=== PATIENT | female | born 1955 | race Caucasian/White ===

== ENCOUNTER 2017-01-23 | Emergency (ER) | payer OTHER ==
[~2017-01-23] MED LIST: ASPIR 8181 MG PO; BRILINTA 90 MG90 MG PO; GLUCOPHAGE1000 MG PO; LIPITOR TAB 2020 MG PO; LOPRESSOR 25 MG25 MG PO; NITROSTAT 0.40.4 MG SL; NORVASC 5 MG TAB5 MG PO; PRILOSEC OTC20 MG PO; PROVENTIL HFA 61 INH INH
[2017-08-02] MEDS ORDERED: PLAVIX 75 MG TA75 MG PO (03:26)
[2017-08-02] MEDS ORDERED: DIABETA 2.5 MG2.5 MG PO (03:31)
== END 2017-01-23 21:20 | disposition left against medical advice (07) ==
DX: Z53.21 Procedure and treatment not carried out due to patient leaving prior to being seen by health care provider (principal)
CPT/HCPCS: 93005

== ENCOUNTER 2017-02-18 16:29 | Emergency (ER) | payer OTHER ==
[2017-08-02] MEDS ORDERED: PLAVIX 75 MG TA75 MG PO (03:26)
[2017-08-02] MEDS ORDERED: DIABETA 2.5 MG2.5 MG PO (03:31)
== END 2017-02-18 18:19 | disposition home or self-care (01) ==
LOC: ER1 16:29
DX: Z53.21 Procedure and treatment not carried out due to patient leaving prior to being seen by health care provider (principal)

== ENCOUNTER 2017-05-08 17:48 | Inpatient (IN) | payer OTHER ==
[~2017-05-08] VITALS: Ht 170.2 cm; Wt 104.4 kg
[2017-05-08 18:51] LABS: HEMOGLOBIN 13.9 gm/dl (12.3-15.3); RED BLOOD COUNT 4.92 M/UL (4.00-5.10); WHITE BLOOD COUNT 10.2 K/UL (4.5-11.0)
[2017-05-08 19:09] LABS: BUN/CREATININE RATIO 19 (0-10)
[2017-05-09] MEDS ORDERED: PLAVIX 75 MG TA75 MG PO (01:07)
[2017-05-09] MEDS ORDERED: NORVASC 5 MG TAB5 MG PO (01:07)
[2017-05-09] MEDS ORDERED: LASIX20 MG PO (07:59)
[2017-05-09] MEDS ORDERED: MECLIZINE HCL25 MG PO (07:59)
[2017-05-09] MEDS ORDERED: ZYRTEC10 M3 PO (08:00)
[2017-05-09] MEDS ORDERED: WELLBUTRIN SR150 MG PO (08:01)
--- NOTE | 2017-05-10 19:32 | NUR ---
05/10/171927 PATIENT INSISTENT ON GOING OUTSIDE, PATIENT WAS INFORMED AND EDUCATED ON THE RISK OF LEAVING FLOOR, AND VERBALIZES UNDERSTANDING. SMOKING RELEASE ON CHART PORTABLE TELEMETRY PACK PLACED ON PATIENT. PATIENT LEFT FLOOR.
[2017-05-11 11:15] LABS: HEMOGLOBIN 11.8 gm/dl (12.3-15.3); RED BLOOD COUNT 4.23 M/UL (4.00-5.10); WHITE BLOOD COUNT 8.2 K/UL (4.5-11.0)
[2017-05-11 11:32] LABS: BUN/CREATININE RATIO 22 (0-10)
[2017-05-11] MEDS ORDERED: ZETIA10 MG PO (12:17)
[2017-08-02] MEDS ORDERED: PLAVIX 75 MG TA75 MG PO (03:26)
[2017-08-02] MEDS ORDERED: DIABETA 2.5 MG2.5 MG PO (03:31)
== END 2017-05-11 13:13 | disposition home or self-care (01) | DRG 247 ==
LOC: ER1 17:48 → MED SURG 4 21:30 → ZEROF 21:30 → MED SURG 4 23:37 → PROG CARE 05-10 14:27
PROVIDERS: Internal Medicine; Physician Assistant; ADMIT Internal Medicine
PROC: 027034Z Dilation of Coronary Artery, One Artery with Drug-eluting Intraluminal Device, Percutaneous Approach (ICD-10-PCS; principal; 2017-05-10)
PROC: 4A033BC Measurement of Arterial Pressure, Coronary, Percutaneous Approach (ICD-10-PCS; 2017-05-10)
PROC: 3E07317 Introduction of Other Thrombolytic into Coronary Artery, Percutaneous Approach (ICD-10-PCS; 2017-05-10)
PROC: 4A023N7 Measurement of Cardiac Sampling and Pressure, Left Heart, Percutaneous Approach (ICD-10-PCS; 2017-05-10)
PROC: B2111ZZ Fluoroscopy of Multiple Coronary Arteries using Low Osmolar Contrast (ICD-10-PCS; 2017-05-10)
DX: T82.855A Stenosis of coronary artery stent, initial encounter (principal); I25.10 Atherosclerotic heart disease of native coronary artery without angina pectoris; R10.9 Unspecified abdominal pain; E11.9 Type 2 diabetes mellitus without complications; J44.9 Chronic obstructive pulmonary disease, unspecified; F17.210 Nicotine dependence, cigarettes, uncomplicated; K21.9 Gastro-esophageal reflux disease without esophagitis; E78.5 Hyperlipidemia, unspecified; G47.33 Obstructive sleep apnea (adult) (pediatric); I25.2 Old myocardial infarction; I25.119 Atherosclerotic heart disease of native coronary artery with unspecified angina pectoris; I10 Essential (primary) hypertension; E66.9 Obesity, unspecified; Y84.0 Cardiac catheterization as the cause of abnormal reaction of the patient, or of later complication, without mention of misadventure at the time of the procedure; Z99.81 Dependence on supplemental oxygen; Z90.710 Acquired absence of both cervix and uterus; Z98.61 Coronary angioplasty status; Z79.84 Long term (current) use of oral hypoglycemic drugs; Z79.899 Other long term (current) drug therapy; Z82.49 Family history of ischemic heart disease and other diseases of the circulatory system; Z68.36 Body mass index [BMI] 36.0-36.9, adult
CPT/HCPCS: 36415; 71010; 78452; 80048; 80053; 80061; 81001; 82550; 82553; 82962; 83036; 83874; 83880; 84443; 84484; 85025; 85027; 85347; 93005; 93017; 93571; 94640; 94664; 99152; 99153; 99285; A9502; C1725; C1769; C1874; C1887; C1894; C9600; G0378; J0153; J1644; J2250; J2785; J3010; J7030; Q0163; Q9963

== ENCOUNTER → 2017-05-15 | Outpatient (CLI) | payer OTHER ==
[~2017-05-15] MED LIST changes: +DIABETA 2.5 MG2.5 MG PO; +LASIX20 MG PO; +MECLIZINE HCL25 MG PO; +PLAVIX 75 MG TA75 MG PO; +WELLBUTRIN SR150 MG PO; +ZETIA10 MG PO; +ZYRTEC10 M3 PO
== END ==
LOC: HEART 5 11:50
DX: M79.606 Pain in leg, unspecified (principal); I99.8 Other disorder of circulatory system

== ENCOUNTER 2017-05-21 10:12 | Emergency (ER) | payer OTHER ==
[~2017-05-21 10:12] MED LIST changes: -DIABETA 2.5 MG2.5 MG PO
[2017-05-21 11:39] LABS: HEMOGLOBIN 12.4 gm/dl (12.3-15.3); RED BLOOD COUNT 4.32 M/UL (4.00-5.10); WHITE BLOOD COUNT 11.2 K/UL (4.5-11.0)
[2017-05-21 12:03] LABS: BUN/CREATININE RATIO 10 (0-10)
[2017-08-02] MEDS ORDERED: PLAVIX 75 MG TA75 MG PO (03:26)
[2017-08-02] MEDS ORDERED: DIABETA 2.5 MG2.5 MG PO (03:31)
== END 2017-05-21 21:54 ==
LOC: ER1 10:12
PROVIDERS: Emergency Medicine
DX: N39.0 Urinary tract infection, site not specified (principal); R55 Syncope and collapse; R06.02 Shortness of breath; R05 Cough; H92.01 Otalgia, right ear; I51.9 Heart disease, unspecified; F17.210 Nicotine dependence, cigarettes, uncomplicated; R11.2 Nausea with vomiting, unspecified
CPT/HCPCS: 36415; 36600; 71010; 80053; 81001; 82550; 82553; 82803; 82962; 83874; 84484; 85025; 85610; 85730; 87040; 87077; 87086; 87186; 93005; 96372; 96374; 99284; J0696; J1650; J7030; J7050; Q9963

== ENCOUNTER → 2020-12-03 | Outpatient (CLI) | payer MEDICARE, OTHER ==
[~2020-12-03] MED LIST changes: +DIABETA 2.5 MG2.5 MG PO; +DUONEB NEB; +EXPECTORANT200 MG PO; +FLONASE 0.05% N16 GM; +MOBIC15 MG PO; +OMNICEF 300 MG300 MG PO; +PYRIDIUM100 MG PO; +TESSALON PERLE100 MG PO; +ZOFRAN ODT4 MG PO; +ZYRTEC10 MG PO
== END ==
LOC: KOH-I 11-25 13:45
DX: I25.10 Atherosclerotic heart disease of native coronary artery without angina pectoris (principal); R42 Dizziness and giddiness; I65.23 Occlusion and stenosis of bilateral carotid arteries
CPT/HCPCS: 70551; 93880

== ENCOUNTER → 2021-01-18 | Outpatient (CLI) | payer MEDICARE, OTHER | LOC: KOH-I 09:26 | DX: M54.9 Dorsalgia, unspecified (principal); G89.29 Other chronic pain; E11.9 Type 2 diabetes mellitus without complications; M51.36 Other intervertebral disc degeneration, lumbar region; M51.37 Other intervertebral disc degeneration, lumbosacral region; M51.34 Other intervertebral disc degeneration, thoracic region | CPT/HCPCS: 72070; 72110 ==

== ENCOUNTER → 2021-04-20 | Outpatient (CLI) | payer MEDICARE, OTHER | LOC: RAD 10:45 | DX: M25.561 Pain in right knee (principal); M17.0 Bilateral primary osteoarthritis of knee | CPT/HCPCS: 73562 ==

== ENCOUNTER 2021-05-06 11:39 | Emergency (ER) | payer MEDICARE, OTHER ==
[~2021-05-06 11:39] MED LIST changes: -MOBIC15 MG PO
[2021-05-06 12:20] LABS: HEMOGLOBIN 14.9 gm/dl (12.3-15.3); RED BLOOD COUNT 5.04 M/UL (4.00-5.10); WHITE BLOOD COUNT 8.2 K/UL (4.5-11.0)
[2021-05-06 12:47] LABS: BUN/CREATININE RATIO 17 (0-10)
== END 2021-05-06 14:21 | disposition home or self-care (01) ==
LOC: ER1 11:39
PROVIDERS: Emergency Medicine
DX: R42 Dizziness and giddiness (principal); M54.9 Dorsalgia, unspecified; K21.9 Gastro-esophageal reflux disease without esophagitis; J44.9 Chronic obstructive pulmonary disease, unspecified; E78.5 Hyperlipidemia, unspecified; I11.9 Hypertensive heart disease without heart failure; Z88.2 Allergy status to sulfonamides; F17.210 Nicotine dependence, cigarettes, uncomplicated; Z90.49 Acquired absence of other specified parts of digestive tract
CPT/HCPCS: 71045; 80053; 82550; 82553; 83874; 84484; 85025; 93005; 99284

== ENCOUNTER 2021-06-10 11:56 | Emergency (ER) | payer MEDICARE, OTHER ==
[2021-06-10] MEDS ORDERED: MOBIC15 MG PO (13:48)
== END 2021-06-10 14:29 | disposition home or self-care (01) ==
LOC: ER1 11:56
DX: S83.91XA Sprain of unspecified site of right knee, initial encounter (principal); E11.9 Type 2 diabetes mellitus without complications; I10 Essential (primary) hypertension; F17.200 Nicotine dependence, unspecified, uncomplicated; X50.9XXA Other and unspecified overexertion or strenuous movements or postures, initial encounter; Y92.009 Unspecified place in unspecified non-institutional (private) residence as the place of occurrence of the external cause
CPT/HCPCS: 29505; 73562; 99283

== ENCOUNTER → 2021-07-02 | Outpatient (CLI) | payer MEDICARE, OTHER ==
[~2021-07-02] MED LIST changes: +MOBIC15 MG PO
== END ==
LOC: KOH-I 06-28 14:30
DX: Z12.2 Encounter for screening for malignant neoplasm of respiratory organs (principal); R91.8 Other nonspecific abnormal finding of lung field; E27.8 Other specified disorders of adrenal gland
CPT/HCPCS: 71271

== ENCOUNTER → 2021-12-29 | Outpatient (CLI) | payer MEDICARE, OTHER | LOC: RT 10:05 | DX: I10 Essential (primary) hypertension (principal); I25.10 Atherosclerotic heart disease of native coronary artery without angina pectoris | CPT/HCPCS: 93005 ==

== ENCOUNTER 2022-01-05 16:04 | Emergency (ER) | payer MEDICARE, OTHER | END 2022-01-05 16:28 | disposition left against medical advice (07) | LOC: ER1 16:04 | DX: Z53.21 Procedure and treatment not carried out due to patient leaving prior to being seen by health care provider (principal) ==

== ENCOUNTER 2022-04-19 11:24 | Emergency (ER) | payer MEDICARE, OTHER ==
[2022-04-19 12:36] LABS: HEMOGLOBIN 14.7 gm/dl (12.3-15.3); RED BLOOD COUNT 4.9 M/UL (4.00-5.10)
[2022-04-19 13:07] LABS: BUN/CREATININE RATIO 21 (0-10)
== END 2022-04-19 15:02 | disposition left against medical advice (07) ==
LOC: ER1 11:24
PROVIDERS: Physician Assistant Medical
DX: R07.9 Chest pain, unspecified (principal); R42 Dizziness and giddiness; I25.10 Atherosclerotic heart disease of native coronary artery without angina pectoris; E11.9 Type 2 diabetes mellitus without complications; I25.2 Old myocardial infarction; E78.5 Hyperlipidemia, unspecified; K21.9 Gastro-esophageal reflux disease without esophagitis; F17.210 Nicotine dependence, cigarettes, uncomplicated; J44.9 Chronic obstructive pulmonary disease, unspecified; Z95.5 Presence of coronary angioplasty implant and graft; Z90.89 Acquired absence of other organs; Z90.49 Acquired absence of other specified parts of digestive tract; Z90.710 Acquired absence of both cervix and uterus; Z88.2 Allergy status to sulfonamides; Z91.041 Radiographic dye allergy status
CPT/HCPCS: 70450; 71045; 80053; 81001; 82550; 82553; 83690; 84439; 84443; 84484; 85025; 93005; 99283

== ENCOUNTER 2022-07-04 10:14 | Observation (INO) | payer MEDICARE, OTHER ==
[~2022-07-04] VITALS: Ht 160 cm; Wt 100.7 kg
[~2022-07-04 10:14] MED LIST changes: +GLUCOPHAGE XR500 M1 PO; -GLUCOPHAGE1000 MG PO; +OMEPRAZOLE40 MG PO; -PRILOSEC OTC20 MG PO
[2022-07-04 11:29] LABS: HEMOGLOBIN 15.1 gm/dl (12.3-15.3); RED BLOOD COUNT 5.02 M/UL (4.00-5.10); WHITE BLOOD COUNT 7.6 K/UL (4.5-11.0)
[2022-07-04 11:51] LABS: BUN/CREATININE RATIO 15 (0-10)
[2022-07-04] MEDS ORDERED: BENICAR HCT 401 EACH PO (17:00)
[2022-07-04] MEDS ORDERED: HYDROCODON-ACE1 EAC6 PO (17:01)
[2022-07-04] MEDS ORDERED: DOCUSATE SODIU100 MG PO (17:02)
[2022-07-05 06:20] LABS: HEMOGLOBIN 14.7 gm/dl (12.3-15.3); WHITE BLOOD COUNT 7.7 K/UL (4.5-11.0)
[2022-07-05 06:44] LABS: BUN/CREATININE RATIO 16 (0-10)
[2022-07-05] MEDS ORDERED: CLOPIDOGREL75 MG PO (16:15)
[2022-07-05] MEDS ORDERED: PROTONIX40 MG PO (16:15)
[2022-07-05] MEDS ORDERED: ATORVASTATIN CA20 MG PO (16:15)
== END 2022-07-05 17:08 | disposition home or self-care (01) ==
LOC: ER1 10:14 → CDU 16:44 → MED SURG 4 16:44
PROVIDERS: Emergency Medicine; Physician Assistant Medical; ADMIT Internal Medicine
DX: I63.9 Cerebral infarction, unspecified (principal); G81.91 Hemiplegia, unspecified affecting right dominant side; I25.10 Atherosclerotic heart disease of native coronary artery without angina pectoris; I10 Essential (primary) hypertension; E78.5 Hyperlipidemia, unspecified; E11.9 Type 2 diabetes mellitus without complications; J44.9 Chronic obstructive pulmonary disease, unspecified; K21.9 Gastro-esophageal reflux disease without esophagitis; F17.210 Nicotine dependence, cigarettes, uncomplicated; Z95.5 Presence of coronary angioplasty implant and graft; Z79.82 Long term (current) use of aspirin; Z79.84 Long term (current) use of oral hypoglycemic drugs; Z79.899 Other long term (current) drug therapy; Z88.1 Allergy status to other antibiotic agents; Z88.2 Allergy status to sulfonamides; Z88.8 Allergy status to other drugs, medicaments and biological substances; Z91.041 Radiographic dye allergy status
CPT/HCPCS: ECHO; 36415; 70450; 70544; 70551; 71045; 80048; 80053; 80061; 81001; 82550; 82553; 82962; 83036; 83735; 84484; 85025; 85027; 87086; 93005; 93306; 93880; 97161; 97165; 99285; G0378